=== PATIENT | female | born 1980 | race Caucasian/White ===

== ENCOUNTER 2018-07-16 18:57 | Emergency (ER) | payer BC ==
[2018-07-16 19:15] VITALS: BP 191/97
--- NOTE | 2018-07-16 19:24 | UC ---
Abdominal Pain Female HPI - HPI Summary HPI Summary: The patient is a 38-year-old female that has had crampy pelvic pain for approximately 2 weeks. He has 4-5 days late for her period. She has no fever or chills. He denies any UTI symptoms. She denies any vaginal discharge or itch. Her pain is been mild but it has been annoying when she works. 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 She has no diarrhea. Denies any constipation. - History of Current Complaint Chief Complaint: UCAbdominalPain Stated Complaint: CRAMPS Time Seen by Provider: 07/16/18 19:16 Hx Obtained From: Patient Hx Last Menstrual Period: 06/17/18 Onset/Duration: Gradual Onset, Lasting Weeks Timing: Constant Severity Initially: Mild Severity Currently: Mild Pain Intensity: 3 Pain Scale Used: 0-10 Numeric Location: Diffuse - lower pelvis Radiates: No Character: Cramping Aggravating Factor(s): Nothing Alleviating Factor(s): Nothing Allergies/Adverse Reactions: Allergies Allergy/AdvReac Type Severity Reaction Status Date / Time ibuprofen Allergy Swelling Verified 07/16/18 19:16 Of Face,Lips,& Throat Home Medications: Home Medications Vitamin D3 1,000 unit PO DAILY 07/16/18 [History Confirmed 07/16/18] PMH/Surg Hx/FS Hx/Imm Hx Previously Healthy: Yes Cardiovascular History: Hypertension - Surgical History Surgical History: Yes Surgery Procedure, Year, and Place: D & E - Family History Known Family History: Positive: Cardiac Disease - Social History Alcohol Use: None Substance Use Type: None Smoking Status (MU): Never Smoked Tobacco Have You Smoked in the Last Year: No Review of Systems All Other Systems Reviewed And Are Negative: Yes Constitutional: Positive: Negative Skin: Positive: Negative Eyes: Positive: Negative ENT: Positive: Negative Respiratory: Positive: Negative Cardiovascular: Positive: Negative Gastrointestinal: Positive: Abdominal Pain Genitourinary: Positive: Negative Motor: Positive: Negative Neurovascular: Positive: Negative Musculoskeletal: Positive: Negative Neurological: Positive: Negative Psychological: Positive: Negative Physical Exam Triage Information Reviewed: Yes Appearance: Well-Appearing, No Pain Distress, Well-Nourished Vital Signs: Initial Vital Signs Temp 99.2 F 07/16/18 19:06 Pulse 91 07/16/18 19:06 Resp 16 07/16/18 19:06 BP 191/97 07/16/18 19:06 Pulse Ox 100 07/16/18 19:06 Vital Signs Reviewed: Yes Eyes: Positive: Conjunctiva Clear ENT: Positive: Hearing grossly normal. Negative: Nasal congestion, Nasal drainage, Trismus, Muffled voice, Hoarse voice Neck: Positive: Supple, Nontender Respiratory: Positive: Lungs clear, Normal breath sounds, No respiratory distress, No accessory muscle use Cardiovascular: Positive: RRR, No Murmur Abdomen Description: Positive: Nontender, Soft. Negative: CVA Tenderness (R), CVA Tenderness (L), Distended Bowel Sounds: Positive: Present Pelvic Exam: Positive: External Exam Normal, Discharge - thin whitish discharge , Other - ? fullness left adenexa Musculoskeletal: Positive: ROM Intact, No Edema Neurological: Positive: Alert Psychological Exam: Normal Skin Exam: Normal Abd Pain Female Course/Dx - Differential Dx/Diagnosis Provider Diagnoses: pelvic cramping of uncertain cause Discharge - Sign-Out/Discharge Documenting (check all that apply): Patient Departure All imaging exams completed and their final reports reviewed: No Studies - Discharge Plan Condition: Stable Disposition: HOME Patient Education Materials: Pelvic Pain (ED) Referrals: No Primary Care Phys,NOPCP [Primary Care Provider] - Cash Cline MD [Medical Doctor] - 1 Week (recheck in 1-2 weeks ) Additional Instructions: I am unsure what is causing your pelvic pain studies of your vaginal discharge is pending If symptoms persist you will need further evaluation (you may need an ultrasound or other studies) TO ER FOR: increased pain fever vomiting you can tylenol or advil for pain - Billing Disposition and Condition Condition: STABLE Disposition: Home
--- NOTE | 2018-07-18 15:25 | UC ---
- Progress Note Progress Note: urine - no growth final no change harlanj 07/18/2018 Discharge - Sign-Out/Discharge Documenting (check all that apply): Post-Discharge Follow Up All imaging exams completed and their final reports reviewed: No Studies - Discharge Plan Condition: Stable Disposition: HOME Patient Education Materials: Pelvic Pain (ED) Referrals: Cash Cline MD [Medical Doctor] - 1 Week (recheck in 1-2 weeks ) No Primary Care Phys,NOPCP [Primary Care Provider] - Additional Instructions: I am unsure what is causing your pelvic pain studies of your vaginal discharge is pending If symptoms persist you will need further evaluation (you may need an ultrasound or other studies) TO ER FOR: increased pain fever vomiting you can tylenol or advil for pain - Billing Disposition and Condition Condition: STABLE Disposition: Home
--- NOTE | 2018-07-18 15:26 | UC ---
- Progress Note Progress Note: + Mia Rx Flagyl please call pt - update result ljj Discharge - Sign-Out/Discharge Documenting (check all that apply): Post-Discharge Follow Up All imaging exams completed and their final reports reviewed: No Studies - Discharge Plan Condition: Stable Disposition: HOME Patient Education Materials: Pelvic Pain (ED) Referrals: Cash Cline MD [Medical Doctor] - 1 Week (recheck in 1-2 weeks ) No Primary Care Phys,NOPCP [Primary Care Provider] - Additional Instructions: I am unsure what is causing your pelvic pain studies of your vaginal discharge is pending If symptoms persist you will need further evaluation (you may need an ultrasound or other studies) TO ER FOR: increased pain fever vomiting you can tylenol or advil for pain - Billing Disposition and Condition Condition: STABLE Disposition: Home
== END 2018-07-16 20:25 | disposition home or self-care (01) ==
LOC: UCEAST 18:57
DX: R10.2 Pelvic and perineal pain (principal); I10 Essential (primary) hypertension; Z88.6 Allergy status to analgesic agent
CPT/HCPCS: 81003; 84702; 87086; 87480; 87491; 87510; 87591; 87661; 99212; G0463